=== PATIENT | female | born 1995 | race African-American/Black ===

== ENCOUNTER 2022-04-06 13:26 | Emergency (ER) | payer SELFPAY ==
--- NOTE | 2022-04-06 13:28 | ED.ABDPAIN ---
HPI - Abdominal Pain General Chief Complaint: Urogenital-Female Stated Complaint: Abdominal Pain Time Seen by Provider: 04/06/22 13:27 Source: patient Mode of arrival: ambulatory Limitations: no limitations History of Present Illness HPI narrative: Ms. Feng is a 27-year-old female patient presenting to the clinic today with complaints of vaginal bleeding after intercourse. She reports she had intercourse yesterday and felt a blob come out of her vagina and go in the toilet afterwards. States she flushed it too quickly to see what it was and the bathroom was dark. She is concerned that she is having vaginal bleeding and wants to be sure that her IUD is in place. States that she is currently being treated for UTI and a bacterial vaginitis infection. Reports that she has not been good with taking her medicines and she is only take them for about 2 days. Denies any pain during intercourse however she noticed this morning that she had some blood with wiping. States that when she orgasms last night she had sharp abdominal/pelvic pain. Denies any urinary symptoms currently. She declines any STD testing today in the clinic. Related Data Home Medications Medication Instructions Recorded Confirmed No Home Medications 04/06/22 04/06/22 Allergies Allergy/AdvReac Type Severity Reaction Status Date / Time No Known Allergies Allergy Verified 04/06/22 13:42 Review of Systems Review of Systems: Pertinent positives per HPI. Patient denies any fever, chills, rash, headache, visual changes, dizziness, cough, runny nose, sore throat, shortness of breath, chest pain, palpitations, nausea, vomiting, diarrhea, constipation, or any urinary issues. PMFSH Comments At the time of my signature, I reviewed and agree with the nursing past medical, surgical, social, and family history. There is no relevant family history pertinent to the patient complaint. Exam Narrative: General: Well-developed, well nourished, in no apparent distress Head: Normocephalic, atraumatic. Cardio: Regular rate and rhythm, s1 and s2 normal, no murmur appreciated. Resp: Clear to auscultation bilaterally, no rhonchi, rales, wheezing or rubs. Abdomen: Soft, pliable, bowel sounds present in all quadrants, non-tender to palpation, no CVAT tenderness. : Pelvic exam performed with Glenda IBARRA at bedside. Verbal consent obtained from patient. Normal external female genitalia without lesions or masses, Urinary meatus: patent without discharge, no scarring or mass Vagina: Vaginal wall inflamed, no lesions, masses, bloody discharge with some clotting noted Cervix: pink without mass, lesions, discharge, or tenderness. IUD string palpable Adnexa: without palpable mass or tenderness. Course Course Emergency Course: Portions of this record may have been created with voice recognition software. Level of Care: Express Care Visit Vital Signs Vital signs: Vital signs reviewed MDM - Abdominal Pain MDM Narrative Medical decision making narrative: At the time of visit patient is resting comfortably on the exam table. Pelvic exam was performed and IUD string was palpable. Cervix was nontender. Has some clotting blood and the vaginal vault. Mild inflamed vaginal wall. I suspect that the patient still has bacterial vaginosis and has vaginal bleeding after intercourse due to this. Patient is already taking cephalexin, metronidazole, and fluconazole for her symptoms and she has only has taken the medications for 2 days. UA was positive for a urinary tract infection and urine was negative. Differential Diagnosis Differential diagnosis: Likely abdominal pain, endometriosis and other (Bacterial vaginitis, dyspareunia, cervicitis) Discharge Plan Discharge Clinical Impression: Vaginal bleeding, Bacterial vaginosis, Urinary tract infection Patient Disposition: Home, Self-Care Condition: Stable Instructions: Bacterial Vaginosis (ED), Urinary Tract Infectio
[2022-04-06 13:40] VITALS: BP 122/78; PULSE 63; RESP 16; TEMP 37.2; O2SAT 100
== END 2022-04-06 14:19 | disposition home or self-care (01) ==
PROVIDERS: Emergency Provider Nurse Practitioner Family
DX: N93.9 Abnormal uterine and vaginal bleeding, unspecified (principal); N76.0 Acute vaginitis; N39.0 Urinary tract infection, site not specified
CPT/HCPCS: 81003; 81025; 99204; G0463